=== PATIENT | female | born 1945 | race Caucasian/White ===

== ENCOUNTER 2017-07-08 07:34 | Outpatient (CLI) | payer OTHER ==
[2015-04-06 06:36] VITALS: BMI 22.3
[~2017-07-08 07:34] MED LIST: COZAAR25 MG PO; XANAX0.25 MG PO
== END 2017-07-08 23:59 | disposition home or self-care (01) ==
LOC: D.MAMMO 07:34
DX: Z12.31 Encounter for screening mammogram for malignant neoplasm of breast (principal)

== ENCOUNTER 2018-03-07 14:47 | Observation (INO) | payer OTHER ==
[~2018-03-07] VITALS: Ht 162.6 cm; Wt 62.5 kg
--- NOTE | ~2018-03-07 | MORECARE ---
CASE MANAGEMENT DISCHARGE SUMMARY PATIENT: ROSSANA HERNANDEZ UNIT: [id number] ADM DATE: 03/07/18 AGE: 73 : [birth year] SEX: F ROOM/BED: D.2134 AUTHOR: KERMIT BUTTERFIELD PHYSICIAN: REFERRING PHYSICIAN: ANDIE MCNEIL MD DATE OF SERVICE: 03/10/18 Discharge Plan Patient Name: ROSSANA HERNANDEZ Facility: [facility]:[place] : 1945 Planned Disposition: Home Anticipated Discharge Date: 03/08/18 Discharge Date: 03/08/2018 Expected LOS: 1 Initial Reviewer: [email or web address] Initial Review Date: 03/10/2018 Generated: 03/10/18 10:09 am Patient Name: ROSSANA HERNANDEZ Page [id number] at 0909 All edits/amendments must be made on the electronic document DICTATION DATE: 03/10/18908 PIECE DYER: TANI 03/10/18908 RPT#: [id number] DC DATE:03/08/18 STATUS: DIS IN [facility] [address] [place] [address] END OF REPORT
[2018-03-07] MEDS ORDERED: VALSART/HCTZ TAB 160 PO (15:41)
[2018-03-07 15:42] VITALS: BP 143/68; BMI 23.2
[2018-03-07] MEDS ORDERED: IMITREX100 MG PO (15:42)
[2018-03-07 15:58] VITALS: BP 143/68
[2018-03-07 16:49] LABS: CKMB 1.7 U/L (0.0-3.6); CREATINE KINASE 92 UL (21-215)
[2018-03-07 16:50] LABS: TROPONIN-I < 0.017 ng/mL (0.000-0.060)
[2018-03-07 19:27] VITALS: Ht 162.6 cm; Wt 62.5 kg
[2018-03-07 20:00] VITALS: BP 121/67
[2018-03-07 23:52] LABS: CKMB 1.3 U/L (0.0-3.6); CREATINE KINASE 73 UL (21-215); TROPONIN-I < 0.017 ng/mL (0.000-0.060)
[2018-03-08] VITALS: BP 125/66
[2018-03-08 05:35] LABS: BASOPHILS 0.7 % (0-2); EOSINOPHILS 5.6 % (0-7); HEMOGLOBIN 13.4 g/dL (12-16); IMMATURE GRANULOCYTES 0.2 % (0-5); LYMPHOCYTES 35.8 % (15-50); MCH 31.8 pg (26.0-34.0); MCHC 35.3 g/dL (31.0-37.0); MCV 90.3 fL (80.0-100.0); MEAN PLATELET VOLUME 9.7 fL (7.4-10.4); MONOCYTES 12.6 % (2-11); NEUTROPHILS 45.1 % (40-80); PLATELET COUNT 224 10x3/uL (130-400); RBC 4.21 10x6/uL (4.00-5.40); WBC 5.9 10x3/uL (4.8-10.8)
[2018-03-08 05:55] LABS: CALC OSMOLALITY 270 mosm/kg (275-300); CARBON DIOXIDE 28.5 mmol/L (21.0-32.0); CHLORIDE - SERUM 99 mmol/L (98-107); CREATININE - SERUM 0.7 mg/dL (0.6-1.3); GLUCOSE 101 mg/dL (74-106); POTASSIUM - SERUM 4.2 mmol/L (3.5-5.1); SODIUM 135 mmol/L (136-145); UREA NITROGEN 14 mg/dL (7-18); eGFR NON AFRICAN AMERICAN 87 mL/min (90-120)
[2018-03-08 06:04] VITALS: BP 116/61
[2018-03-08 08:00] VITALS: BP 160/60
[2018-03-08 08:02] LABS: CKMB 0.8 U/L (0.0-3.6); CREATINE KINASE 69 UL (21-215)
[2018-03-08 08:06] LABS: TROPONIN-I < 0.017 ng/mL (0.000-0.060)
== END 2018-03-08 13:55 | disposition home or self-care (01) ==
LOC: D.M2 14:47 → OBSVTIME 14:48 → D.M2 03-08 13:55
PROVIDERS: Family Medicine
DX: R55 Syncope and collapse (principal); T39.8X5A Adverse effect of other nonopioid analgesics and antipyretics, not elsewhere classified, initial encounter; R51 Headache; I10 Essential (primary) hypertension; E87.6 Hypokalemia; E87.1 Hypo-osmolality and hyponatremia

== ENCOUNTER 2018-03-19 13:00 | Day surgery (SDC) | payer OTHER ==
[~2018-03-19] VITALS: Ht 1788.2 cm; Wt 60.5 kg
--- NOTE | ~2018-03-19 | OP ---
PATIENT NAME: ROSSANA HERNANDEZ MEDICAL RECORD: [id number] :49 LOCATION:D.OPS ADMISSION DATE: SURGEON: JOSE G DUVALL MD DATE OF OPERATION: 03/19/2018 PREOPERATIVE DIAGNOSIS: Acute appendicitis. POSTOPERATIVE DIAGNOSES: 1. Probable acute appendicitis; however, the appendix was firm, glistening, and nodular and also pale. 2. Next to the appendix, there was a band structure, which appeared to be an adhesion; however, it appeared hemorrhagic. PROCEDURE: Laparoscopic appendectomy. SURGEON: Jose G Duvall MD JUVENILE CORRECTIONAL OFFICER: None. BLOOD LOSS: Minimal. ANESTHESIA: General. COMPLICATIONS: None. The risks, possible complications, and alternatives to the procedure were explained to the patient and her family. They elected to proceed. OPERATIVE COURSE: The patient was conveyed to the operating room urgently on 03/19/2018. General anesthesia was induced by the anesthesia staff. The abdomen was sterilely prepped and draped. An incision was accomplished within the umbilicus. I dissected down to the level of a small incarcerated hernia. Incarcerated preperitoneal fat was excised. I then sharply cleaned the fascia around the hernia defect from overlying connective tissue. A 12-mm trocar was inserted through the hernia defect. CO2 insufflation was begun. Once a sufficient pneumoperitoneum had been achieved, 2 more trocars were inserted. One was inserted in the right groin and one was inserted in the left groin. During insertion of the trocars, there was no apparent injury to the bowels, any intraperitoneal or retroperitoneal structures. An abdominal survey was undertaken. This adhesive band-like structure was divided with the laparoscopic EnSeal device and essentially vaporized the structure. A window was created in the mesoappendix. I took down the mesoappendix with the laparoscopic EnSeal device. I then stapled across the tip of the cecum with the Endo-SENA type stapler utilizing a blue load. The appendix was placed within a bag retrieval device and was withdrawn through the umbilical fascia defect. The 12-mm trocar was replaced and the abdomen reinsufflated. I irrigated and aspirated the right lower quadrant. There was no bleeding even at low pressure of 8. A topical hemostatic agent was added to the right lower quadrant. OPERATIVE REPORT [id number] ROSSANA HERNANDEZ All the trocars removed and the abdomen desufflated. The umbilical hernia defect was closed with a single horizontal mattress 0 Vicryl suture. The umbilical skin was approximated with interrupted 3-0 Vicryl Rapide sutures. The other skin incisions were closed with interrupted intracuticular 3-0 Vicryls. Benzoin and Steri-Strips were applied. The patient was then extubated and conveyed to the post-anesthesia care unit where she was in stable condition. I plan that she will be dismissed home in the morning. TRANSINT:[id number] Voice Confirmation ID: [id number] DOCUMENT ID: [id number] JOSE G DUVALL MD at 1603 CC: [id number] DICTATION DATE: 03/19/188 OPERATIONS OFFICER TRUST DEPARTMENT: 03/20/18 0026 [facility] 03/21/18 [id number] [place] [address]
--- NOTE | ~2018-03-19 | HP ---
PATIENT: ROSSANA HERNANDEZ MEDICAL RECORD: [id number] ACCOUNT: [id number] LOCATION:D.MS [address] : [birth year] ADMISSION DATE: 03/19/18 PCP: MAYRA NEWMAN MD HISTORY AND PHYSICAL EXAMINATION REASON FOR ADMISSION: Abdominal pain. HISTORY OF PRESENT ILLNESS: The patient is a 73-year-old female who stated, about 4 days ago, after eating dinner, she had acute onset of abdominal pain. She felt like she was constipated and eventually took something to move her bowels. She had a small bowel movement with minimal relief in her pain. The pain became more generalized and she had also some nausea. She has had lots of flatus and poor appetite. She said that the pain began to localize more in her lower quadrant on the right side in the last 48 hours. She has not vomited, but has been nauseated. She denies fever. PAST MEDICAL HISTORY: Migraine headaches, chronic constipation, and essential hypertension. PAST SURGICAL HISTORY: Laparoscopic cholecystectomy and hysterectomy in 1997 and 1999 respectively. ALLERGIES: PENICILLIN, AMLODIPINE, ASPIRIN, CIPRO, EGGS, AND MORPHINE. SOCIAL HISTORY: , but has a significant other. FAMILY HISTORY: Mother had dementia, cardiovascular disease, and arrhythmias. One sibling with cancer. SOCIAL HISTORY: She has never been a smoker. Drinks moderate alcohol. She is retired from the banking industry. REVIEW OF SYSTEMS: GENERAL: Denies fever. She has had poor appetite for the last 4 days. HEENT: No recent visual change, sinus congestion, sore throat, or hearing difficulty. Wears glasses to read. RESPIRATORY: No severe cough. CARDIAC: No exertional chest pain, claudication, or edema. GASTROINTESTINAL: She has had slight nausea and poor appetite. She has had some constipation chronically and worse recently. She has had generalized abdominal pain. She says it hurts for her to walk. She feels better if she leans forward when she walks. GENITOURINARY: No dysuria or incontinence. GYNECOLOGIC: No vaginal bleeding. ENDOCRINE: Denies polyuria, polydipsia, heat or cold intolerance. NEUROLOGIC: No history of stroke, TIA, or seizure. She has had history of vascular headaches, had one recently. PHYSICAL EXAMINATION: VITAL SIGNS: Her temperature is 99 degrees Fahrenheit orally, blood pressure is 122/70, heart rate is 90. Weight is 132, BMI is 22.9, height is 5 feet 4 inches. GENERAL: The patient is in moderate pain, but alert and oriented. HEENT: Eyes are clear and nonicteric. Oropharynx is unremarkable. NECK: Supple. HISTORY AND PHYSICAL [id number] ROSSANA HERNANDEZ CHEST: Clear. HEART: Regular rate without murmur. BREASTS: Not examined. ABDOMEN: Slightly protuberant with hyperactive bowel sounds. She has marked tenderness over McBurney's point with rebound. RECTAL: No stool in the vault. EXTREMITIES: No CC&E. NEUROLOGIC: Grossly intact. LABORATORY DATA: Her white count is 5900 with normal diff, H&H is 13.5 and 38.0 respectively. BMP is normal except potassium of 3.4. Liver function is normal. UA unremarkable. DIAGNOSTIC DATA: Acute abdominal series showed no free air or loops of bowel. She does have lots of abdominal gas. She was sent to the hospital for CT scan of abdomen and pelvis. It does reveal early appendicitis. ASSESSMENT: Lower quadrant abdominal pain, appendicitis, and hypokalemia. PLAN: The patient will be held n.p.o. We will admit for IV antibiotic, IV Invanz. I talked to Dr. Albert, who will see the patient later this evening. TRANSINT:[id number] Voice Confirmation ID: [id number] DOCUMENT ID: [id number] MAYRA NEWMAN MD at 0710 CC: [id number] DICTATION DATE: 03/19/18 1626 AVIATION MAINTENANCE TECHNICIAN: 03/19/18 1700 ADM IN [id number] [place] [address]
[~2018-03-19 13:00] MED LIST changes: +IMITREX100 MG PO; +VALSART/HCTZ TAB 160 PO
[2018-03-19 19:09] VITALS: BP 144/68; Ht 1788.2 cm; Wt 60.5 kg
[2018-03-19 22:16] VITALS: BP 117/62
[2018-03-20 04:58] VITALS: BP 132/77
[2018-03-20 05:59] LABS: BASOPHILS 0.1 % (0-2); EOSINOPHILS 0.1 % (0-7); HEMATOCRIT 36.7 % (36.0-48.0); HEMOGLOBIN 13.1 g/dL (12-16); IMMATURE GRANULOCYTES 0.1 % (0-5); LYMPHOCYTES 4.7 % (15-50); MCH 31.6 pg (26.0-34.0); MCHC 35.7 g/dL (31.0-37.0); MCV 88.4 fL (80.0-100.0); MEAN PLATELET VOLUME 10.1 fL (7.4-10.4); MONOCYTES 3.4 % (2-11); NEUTROPHILS 91.6 % (40-80); PLATELET COUNT 221 10x3/uL (130-400); RBC 4.15 10x6/uL (4.00-5.40); RDW 11.8 % (11.5-14.5); WBC 9.2 10x3/uL (4.8-10.8)
[2018-03-20 06:42] LABS: ALBUMIN 3.4 g/dL (3.4-5.0); ALKALINE PHOSPHATASE 65 U/L (46-116); ALT (SGPT) 19 U/L (10-68); BILIRUBIN - TOTAL 0.41 mg/dL (0.2-1.3); CALC OSMOLALITY 265 mosm/kg (275-300); CALCIUM 8.8 mg/dL (8.5-10.1); CHLORIDE - SERUM 97 mmol/L (98-107); CREATININE - SERUM 0.7 mg/dL (0.6-1.3); MAGNESIUM - SERUM 1.8 mg/dL (1.8-2.4); PHOSPHOROUS 3.8 mg/dL (2.5-4.9); POTASSIUM - SERUM 3.6 mmol/L (3.5-5.1); PROTEIN - SERUM 6.3 g/dL (6.4-8.2); SODIUM 133 mmol/L (136-145); UREA NITROGEN 5 mg/dL (7-18); eGFR NON AFRICAN AMERICAN 87 mL/min (90-120)
[2018-03-20 06:43] LABS: GLUCOSE 149 mg/dL (74-106)
[2018-03-20 11:00] VITALS: BP 115/48
[2018-03-20 16:33] VITALS: BP 115/57
[2018-03-20 21:26] VITALS: BP 122/58
[2018-03-21 05:11] VITALS: BP 132/67
[2018-03-21] MEDS ORDERED: CALAN SR180 MG PO (07:36)
[2018-03-21] MEDS ORDERED: MIRALAX17 GM PO (07:37)
[2018-03-21] MEDS ORDERED: HYDROCODON-ACE1 EAC7 PO (07:38)
[2018-03-21] MEDS ORDERED: ZOFRAN ODT4 MG/UDTAB PO (07:38)
[2018-03-21 08:23] VITALS: BP 128/74
== END 2018-03-21 12:35 | disposition home or self-care (01) ==
LOC: D.OPS 13:00 → D.CT 13:00 → EDSTATUS 13:30 → D.CT 13:30 → D.MS 16:36 → D.CT 16:36 → D.OPS 03-21 12:35 → D.MS 03-21 12:35
PROVIDERS: Family Medicine; Surgery
DX: K35.80 Unspecified acute appendicitis (principal); K42.0 Umbilical hernia with obstruction, without gangrene; K66.0 Peritoneal adhesions (postprocedural) (postinfection); I10 Essential (primary) hypertension

== ENCOUNTER 2018-08-01 08:00 | Outpatient (CLI) | payer OTHER ==
[~2018-08-01 08:00] MED LIST changes: +CALAN SR180 MG PO; +HYDROCODON-ACE1 EAC7 PO; +MIRALAX17 GM PO; +ZOFRAN ODT4 MG/UDTAB PO
== END 2018-08-01 09:00 | disposition home or self-care (01) ==
LOC: D.MAMMO 08:00
PROVIDERS: ATTEND Family Medicine
DX: Z12.31 Encounter for screening mammogram for malignant neoplasm of breast (principal)

== ENCOUNTER → 2020-03-03 22:35 | Outpatient (CLI) | payer OTHER | END | disposition home or self-care (01) | LOC: D.MAMMO 09:45 | PROVIDERS: ATTEND Family Medicine | DX: Z12.31 Encounter for screening mammogram for malignant neoplasm of breast (principal) ==